=== PATIENT | male | born 1955 | race Caucasian/White ===

== ENCOUNTER 2023-08-08 09:37 | Emergency (ER) | payer MEDICARE ==
[2023-08-08] MEDS ORDERED: Sodium Chloride 0.9% 1000 ML 1,000 ML ONE (09:52)
[2023-08-08] MEDS ORDERED: HEPARIN 5000 UNITS/0.5 ML (HIGH RISK MED) ONE (09:52)
[2023-08-08] MEDS ORDERED: Heparin 25,000 units/D5W: USE ORDER SET PROTO 25,000 UNITS/250 ML BAG IV ONE (09:52)
[2023-08-08] MEDS ORDERED: BRILINTA PO ONE (09:55)
[2023-08-08] MEDS ORDERED: BABY ASPIRIN 81 MG CHEW PO ONE (09:55)
[2023-08-08] MEDS ORDERED: HEPARIN 5000 UNITS/0.5 ML (HIGH RISK MED) IV ONE (09:56)
[2023-08-08 10:07] LABS: Absolute Neutrophil Ct (ANC) 8.09 x10^3/uL (1.4-6.9); BASOPHIL % 0.5 % (0.0-0.4); Basophil (Absolute #) 0.06 x10^3/uL (0-0.4); Eosinophil % 1.6 % (0.00-5.0); Eosinophil (Absolute #) 0.18 x10^3/uL (0-0.5); Hematocrit 45.8 % (42-50); Hemoglobin 15.6 g/dL (12.5-18.0); IMMATURE GRAN # 0.05 x10^3u/L (0.00-0.03); IMMATURE GRAN % 0.4 % (0.00-0.4); Lymphocyte (Absolute #) 1.71 x10^3/uL (1.0-4.6); Lymphocytes % 15.3 % (24.0-44.0); Mean Corpuscular Hemoglobin 31.3 pg (26-32); Mean Corpuscular Hgb Concent. 34.1 g/dL (32-36); Mean Platelet Volume 10.1 fL (7.5-11.0); Monocyte (Absolute #) 1.09 x10^3/uL (0.0-1.3); Monocytes % 9.7 % (0.0-12.0); Neutrophil % 72.5 % (36.0-66.0); Platelet Count 168 x10^3/uL (150-450); Red Blood Count 4.98 x10^6/uL (4.1-5.6); Red Cell Distribution Width 12.1 % (11.5-14.0); White Blood Count 11.2 x10^3/uL (4.0-10.5)
[2023-08-08] MEDS ORDERED: Nitrostat 0.4 MG Tablet SL ONE (10:07)
[2023-08-08 10:09] VITALS: BP 157/109; RESP 18; TEMP 97; O2SAT 97
[2023-08-08] MEDS ORDERED: Sodium Chloride 0.9% 1000 ML 1,000 ML IV SCH (10:15)
[2023-08-08 10:25] LABS: INR 0.98 (0.8-3.0); PROTIME 10.7 SECONDS (9.4-12.5); PTT 26.6 SECONDS (25.1-36.5)
[2023-08-08 10:27] VITALS: PULSE 97
[2023-08-08] MEDS ORDERED: Heparin 25,000 units/D5W: USE ORDER SET PROTO 25,000 UNITS/250 ML BAG IV SCH (10:30)
--- NOTE | 2023-08-08 10:32 | ERPHSYRPT ---
- History of Present Illness Historian: patient Exam Limitations: no limitations Patient Subjective Stated Complaint: pt sent here for abnormal labs from yesterday, seen at a clinic for jaw pain . trop 9.41 with abnormal trop Triage Nursing Assessment: pt alert, walked in, no cos states feels better today, pt very up happy about being here, Physician History: Pt seen in an Urgent Care in [place] yesterday for chest/jaw pain and sent home was called on his way to [place] and told that his troponin was high. Pt currently denies chest pain/N/V/dyspnea/diaphoresis. His pain was described as a dull ache yesterday and rated 4/10 but is currently 0/10. EKG demonstrates ST elevation in V2/Poor R wave progression/ST depression in 3-AVF so STEMI protocol was started w IV access/ASA 324mg chewable/Brilinta 180mg/Heparin bolus 5000unitis/Heparin drip 1000units per hr. SL NTG given to decrease BP. Pt accepted by Dr. Beaver at [facility] [place]. He has h/o HTN/DM/Hyperlipidemia/Smoking until 20 yrs ago. Timing/Duration: yesterday Activities at Onset: rest Quality: aching, dullness Location: substernal Chest Pain Radiation: jaw Severity of Pain-Max: mild Severity of Pain-Current: none Modifying Factors: Improves With: nothing Associated Symptoms: denies symptoms Prior Chest Pain/Cardiac Workup: no prior chest pain Nitro Today/Relief: no nitro taken today Aspirin Treatment Today: 81 mg x 1 Allergies/Adverse Reactions: No Known Drug Allergies Allergy (Unverified 08/08/23 09:39) Hx Tetanus, Diphtheria Vaccination/Date Given: No Hx Influenza Vaccination/Date Given: No Hx Pneumococcal Vaccination/Date Given: No Immunizations Up to Date: Yes Travel Risk - International Travel Have you traveled outside of the country in past 3 weeks: No - Coronavirus Screening Are you exhibiting any of the following symptoms?: No Close contact with a COVID-19 positive Pt in past 14-21 Days: No - Vaccine Status Have you recieved a Covid-19 vaccination: Yes 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 Dates if Unknown: ? - Review of Systems Constitutional: No Symptoms Eyes: No Symptoms Ears, Nose, & Throat: No Symptoms Respiratory: No Symptoms Cardiac: No Symptoms Abdominal/Gastrointestinal: No Symptoms Genitourinary Symptoms: No Symptoms Musculoskeletal: No Symptoms Skin: No Symptoms Neurological: No Symptoms Psychological: No Symptoms Endocrine: No Symptoms Hematologic/Lymphatic: No Symptoms Immunological/Allergic: No Symptoms - Past Medical History Pertinent Past Medical History: Yes Cardiac History: High Cholesterol, Hypertension - Past Surgical History Past Surgical History: Yes Gastrointestinal: Appendectomy - Social History Smoking Status: Former smoker Exposure to second hand smoke: No Drug Use: none Patient Lives Alone: Yes - Nursing Vital Signs Nursing Vital Signs: Initial Vital Signs Temperature 97.0 F 08/08/23 10:05 Pulse Rate 98 H 08/08/23 10:05 Respiratory Rate 18 08/08/23 10:05 Blood Pressure 157/109 08/08/23 10:05 O2 Sat by Pulse Oximetry 97 08/08/23 10:05 Pain Scale Pain Intensity 0 Hypertensive - Physical Exam General Appearance: no apparent distress Eye Exam: PERRL/EOMI, eyes nml inspection Ears, Nose, Throat Exam: normal ENT inspection, TMs normal, pharynx normal, moist mucous membranes Neck Exam: normal inspection, non-tender, supple, full range of motion, No meningismus, No mass, No Brudzinski, No Kernig's, No carotid bruit Respiratory Exam: normal breath sounds, lungs clear, airway intact Cardiovascular Exam: regular rate/rhythm, normal heart sounds, normal peripheral pulses, capillary refill <2 sec, No murmur Gastrointestinal/Abdomen Exam: soft, normal bowel sounds, No tenderness Back Exam: normal inspection, normal range of motion, No CVA tenderness, No vertebral tenderness Extremity Exam: normal inspection, normal range of motion, No calf tenderness Neurologic Exam: alert, oriented x 3, cooperative, 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, normal mood/affect, nml cerebellar function, nml station & gait, sensation nml Skin Exam: normal color, warm, dry, No rash Lymphatic Exam: No adenopathy SpO2 Interpretation: normal SpO2: 97 O2 Delivery: Room Air - Course Nursing assessment & vital signs reviewed: Yes EKG Interpreted by Me: RATE (NSR/Rate94/Normal QT-QTc/Elevation V2/Poor R wave progression/Depression 3-AVF) Ordered Tests: Active Orders 24 hr Category Date Time Status EKG-ER Only STAT Care 08/08/23 09:53 Completed IV Insertion STAT Care 08/08/23 09:53 Completed CBC W DIFF Stat Lab 08/08/23 10:05 Completed CMP Stat Lab 08/08/23 10:05 Completed NT PRO BNPII Stat Lab 08/08/23 10:05 Completed PROTIME WITH INR Stat Lab 08/08/23 10:05 Completed PTT Stat Lab 08/08/23 10:05 Completed TROPONIN Q4H Lab 08/08/23 10:05 Completed TROPONIN Q4H Lab 08/08/23 14:00 Ordered TROPONIN Q4H Lab 08/08/23 18:00 Ordered Medication Summary Discontinued Medications Generic Name Dose Route Start Last Admin Trade Name Freq PRN Reason Stop Dose Admin Aspirin 324 mg 08/08/23 09:55 08/08/23 10:04 Aspirin 81 Mg Tab.Chew PO 08/08/23 09:56 324 mg STAT ONE Administration Heparin Sodium (Beef Lung) Confirm 08/08/23 09:52 Heparin 5000 Units/0.5 Ml 5,000 Unit/0.5 Ml Syr Administered 08/08/23 09:53 Dose 5,000 unit .ROUTE .STK-MED ONE Heparin Sodium (Beef Lung) 5,000 unit 08/08/23 09:56 08/08/23 10:03 Heparin 5000 Units/0.5 Ml 5,000 Unit/0.5 Ml Syr IV 08/08/23 09:57 5,000 unit STAT ONE Administration Sodium Chloride Confirm 08/08/23 09:52 Sodium Chloride 0.9% 1000 Ml Administered 08/08/23 09:53 Dose 1,000 mls @ ud .ROUTE .STK-MED ONE Heparin Sodium/Dextrose Confirm 08/08/23 09:52 Heparin 25,000 Units/D5w: Use Order Set Joshua Administered 08/08/23 09:53 Dose 25,000 units in 250 mls @ ud IV .STK-MED ONE Heparin Sodium/Dextrose 25,000 units in 250 mls @ 10 mls/hr 08/08/23 10:30 08/08/23 10:07 Heparin 25,000 Units/D5w: Use Order Set Joshua IV 09/07/23 10:29 1,000 units/hr .Q24H JOLIE 10 mls/hr Administration Protocol 1,000 UNITS/HR Sodium Chloride 1,000 mls @ 0 mls/hr 08/08/23 10:15 08/08/23 10:09 Sodium Chloride 0.9% 1000 Ml IV 09/07/23 10:14 30 mls/hr .Q0M JOLIE Administration KVO Nitroglycerin 0.4 mg 08/08/23 10:07 08/08/23 10:05 Nitroglycerin 0.4 Mg Tablet Bottle SL 08/08/23 10:08 0.4 mg ONCE ONE Administration Ticagrelor 180 mg 08/08/23 09:55 08/08/23 10:03 Ticagrelor 90 Mg Tablet PO 08/08/23 09:56 180 mg ONCE ONE Administration Lab/Rad Data: Laboratory Result Diagrams 08/08/23 10:05 08/08/23 10:05 Laboratory Results 08/08/23 08/08/23 08/08/23 Range/Units 10:05 10:05 10:05 WBC (4.0-10.5) x10^3/uL RBC (4.1-5.6) x10^6/uL Hgb (12.5-18.0) g/dL Hct (42-50) % MCV (78-100) fL MCH (26-32) pg MCHC (32-36) g/dL RDW (11.5-14.0) % Plt Count (150-450) x10^3/uL MPV (7.5-11.0) fL Gran % (36.0-66.0) % Immature Gran % (Auto) (0.00-0.4) % Nucleat RBC Rel Count (0.00-0.1) % Eos # (Auto) (0-0.5) x10^3/uL Immature Gran # (Auto) (0.00-0.03) x10^3u/L Absolute Lymphs (auto) (1.0-4.6) x10^3/uL Absolute Monos (auto) (0.0-1.3) x10^3/uL Absolute Nucleated RBC (0.00-0.01) x10^3u/L Lymphocytes % (24.0-44.0) % Monocytes % (0.0-12.0) % Eosinophils % (0.00-5.0) % Basophils % (0.0-0.4) % Absolute Granulocytes (1.4-6.9) x10^3/uL Basophils # (0-0.4) x10^3/uL PT 10.7 (9.4-12.5) SECONDS INR 0.98 (0.8-3.0) APTT 26.6 (25.1-36.5) SECONDS Sodium 138 (137-145) mmol/L Potassium 4.4 (3.5-5.1) mmol/L Chloride 101 (98-107) mmol/L Carbon Dioxide 27 (22-30) mmol/L Anion Gap 14.1 (5-15) MEQ/L BUN 21 H (9-20) mg/dL Creatinine 1.24 (0.66-1.25) mg/dL Estimated GFR > 60.0 ML/MIN Glucose 225 H (74-106) mg/dL Calcium 9.3 (8.4-10.2) mg/dL Total Bilirubin 1.10 (0.2-1.3) mg/dL AST 327 H (17-59) U/L ALT 64 H (0-50) U/L Alkaline Phosphatase 75 (38-126) U/L Troponin I 65.500 H* (0.000-0.034) ng/mL NT-Pro-B Natriuret Pep 3300 (<300) pg/mL Serum Total Protein 7.1 (6.3-8.2) g/dL Albumin 4.1 (3.5-5.0) g/dL 08/08/23 Range/Units 10:05 WBC 11.2 H (4.0-10.5) x10^3/uL RBC 4.98 (4.1-5.6) x10^6/uL Hgb 15.6 (12.5-18.0) g/dL Hct 45.8 (42-50) % MCV 92.0 (78-100) fL MCH 31.3 (26-32) pg MCHC 34.1 (32-36) g/dL RDW 12.1 (11.5-14.0) % Plt Count 168 (150-450) x10^3/uL MPV 10.1 (7.5-11.0) fL Gran % 72.5 H (36.0-66.0) % Immature Gran % (Auto) 0.4 (0.00-0.4) % Nucleat RBC Rel Count 0.0 (0.00-0.1) % Eos # (Auto) 0.18 (0-0.5) x10^3/uL Immature Gran # (Auto) 0.05 H (0.00-0.03) x10^3u/L Absolute Lymphs (auto) 1.71 (1.0-4.6) x10^3/uL Absolute Monos (auto) 1.09 (0.0-1.3) x10^3/uL Absolute Nucleated RBC 0.00 (0.00-0.01) x10^3u/L Lymphocytes % 15.3 L (24.0-44.0) % Monocytes % 9.7 (0.0-12.0) % Eosinophils % 1.6 (0.00-5.0) % Basophils % 0.5 (0.0-0.4) % Absolute Granulocytes 8.09 H (1.4-6.9) x10^3/uL Basophils # 0.06 (0-0.4) x10^3/uL PT (9.4-12.5) SECONDS INR (0.8-3.0) APTT (25.1-36.5) SECONDS Sodium (137-145) mmol/L Potassium (3.5-5.1) mmol/L Chloride (98-107) mmol/L Carbon Dioxide (22-30) mmol/L Anion Gap (5-15) MEQ/L BUN (9-20) mg/dL Creatinine (0.66-1.25) mg/dL Estimated GFR ML/MIN Glucose (74-106) mg/dL Calcium (8.4-10.2) mg/dL Total Bilirubin (0.2-1.3) mg/dL AST (17-59) U/L ALT (0-50) U/L Alkaline Phosphatase (38-126) U/L Troponin I (0.000-0.034) ng/mL NT-Pro-B Natriuret Pep (<300) pg/mL Serum Total Protein (6.3-8.2) g/dL Albumin (3.5-5.0) g/dL - Progress Progress: improved Progress Note: 08/08/23 11:32 Nursing note and vital signs reviewed No food or housing insecurities noted IV access immediately/EKG reviewed/324 ASA chewable po/Brilinta 180mg/Heparin 5000units IV bolus/heparin drip 1000units per hour/NTG SL x1 EKG reviewed from Urgent Care Pt accepted by Dr. Beaver at [facility] [place] Pt stable when EMS assumed care of pt 08/08/23 11:37 Counseled pt/family regarding: diagnosis Medical Desision Making - External Record(s) Reviewed Records reviewed as a part of evaluation & management: Urgent Care - Risk of complications The pt has a high risk of morbidity or mortality based on: Need for major surgery in patient with known risk factors - Departure Departure Disposition: Transfer Clinical Impression: STEMI (ST elevation myocardial infarction) Condition: Stable Critical Care Time: Yes Critical Care Time(excluding separately billable procedures): Critical 30-74 mins Referrals: DOCTOR,NO FAMILY [NON-STAFF PHY W/O PRIVILEGES] - Follow up/PCP as directed
[2023-08-08 10:35] LABS: ALBUMIN 4.1 g/dL (3.5-5.0); ALKALINE PHOSPHATASE 75 U/L (38-126); ANION GAP 14.1 MEQ/L (5-15); BLOOD UREA NITROGEN 21 mg/dL (9-20); CHLORIDE 101 mmol/L (98-107); Calcium 9.3 mg/dL (8.4-10.2); Carbon Dioxide 27 mmol/L (22-30); Creatinine 1 1.24 mg/dL (0.66-1.25); EST GLOMERULAR FILTRATION RATE > 60.0 ML/MIN; Glucose 225 mg/dL (74-106); NT PRO BNPII 3300 pg/mL (<300); Potassium 4.4 mmol/L (3.5-5.1); SGOT/AST 327 U/L (17-59); SGPT/ALT 64 U/L (0-50); SODIUM 138 mmol/L (137-145); Total Protein 7.1 g/dL (6.3-8.2)
== END 2023-08-08 10:07 | disposition short-term general hospital (02) ==
LOC: ED 09:37
DX: I21.3 ST elevation (STEMI) myocardial infarction of unspecified site (principal); R77.8 Other specified abnormalities of plasma proteins; I10 Essential (primary) hypertension; E11.9 Type 2 diabetes mellitus without complications; E78.5 Hyperlipidemia, unspecified
CPT/HCPCS: 36000; 36415; 80053; 83880; 84484; 85025; 85610; 85730; 93005; 96374; 99285; 99291; J1644; A9270-GY